=== PATIENT | female | born 1940 | race Caucasian/White ===

== ENCOUNTER 2018-05-19 08:00 | Day surgery (SDC) | payer MEDICARE ==
[~2018-05-19] VITALS: Ht 167.6 cm; Wt 72.9 kg
[~2018-05-19 08:00] MED LIST: ASPI81CH PO; Aspir 8181 MG PO; Crestor20 MG PO; EZET10-20 PO; Glucosamine &1 EACH PO; Hair, Skin & N1 EACH PO; Indomethacin25 MG PO; MAGOXI400; MERIBIN5 MG; MULT50L PO; Magnesium500 M1 PO; Mirapex0.25 MG; Mirapex0.25 MG PO; OMEGA 3-6-9 CO400 MG PO; [UNRECOGNIZED DRUG - OTHER] PO
== END 2018-05-19 10:31 | disposition home or self-care (01) ==
LOC: ORSCSDS 08:00
PROVIDERS: Internal Medicine Gastroenterology
PROC: 0DBL8ZX Excision of Transverse Colon, Via Natural or Artificial Opening Endoscopic, Diagnostic (ICD-10-PCS; principal; 2018-05-19 09:30)
DX: Z12.11 Encounter for screening for malignant neoplasm of colon (principal); Z86.010 Personal history of colon polyps; Z85.048 Personal history of other malignant neoplasm of rectum, rectosigmoid junction, and anus; D12.3 Benign neoplasm of transverse colon; K57.30 Diverticulosis of large intestine without perforation or abscess without bleeding; E78.00 Pure hypercholesterolemia, unspecified; Z79.899 Other long term (current) drug therapy
CPT/HCPCS: 88305; J7120